=== PATIENT | male | born 1975 | race Caucasian/White ===

== ENCOUNTER 2018-06-20 21:05 | Emergency (ER) | payer OTHER ==
[~2018-06-20] VITALS: Ht 177.8 cm; Wt 95.3 kg
[2018-06-20 21:26] VITALS: BP 134/82
== END 2018-06-20 23:03 | disposition home or self-care (01) ==
LOC: ER 21:05
DX: S61.210A Laceration without foreign body of right index finger without damage to nail, initial encounter (principal); W26.0XXA Contact with knife, initial encounter; Y93.89 Activity, other specified; Y92.89 Other specified places as the place of occurrence of the external cause; Y99.8 Other external cause status

== ENCOUNTER 2018-06-25 06:08 | Emergency (ER) | payer OTHER ==
[~2018-06-25] VITALS: Ht 177.8 cm; Wt 90.7 kg
[2018-06-25 06:16] VITALS: BP 129/77
[2018-06-25] MEDS ORDERED: NORCO 5-325 TA1 EACH PO (06:30)
== END 2018-06-25 07:10 | disposition home or self-care (01) ==
LOC: ER 06:08
DX: S30.822A Blister (nonthermal) of penis, initial encounter (principal); T49.0X5A Adverse effect of local antifungal, anti-infective and anti-inflammatory drugs, initial encounter; X58.XXXA Exposure to other specified factors, initial encounter; Y92.89 Other specified places as the place of occurrence of the external cause; Y93.89 Activity, other specified; Y99.8 Other external cause status